=== PATIENT | female | born 1965 | race Caucasian/White ===

== ENCOUNTER 2017-02-02 11:45 | Emergency (ER) | payer OTHER, BC ==
[2017-02-02 11:50] VITALS: BP 118/66
--- NOTE | 2017-02-02 12:21 | EDM.PDOC ---
ED HPI GENERAL MEDICAL PROBLEM - General Chief Complaint: Lower Extremity Injury/Pain Stated Complaint: LT FOOT PAIN Time Seen by Provider: 02/02/17 12:00 Source of Information: Reports: Patient History Limitations: Reports: No Limitations - History of Present Illness INITIAL COMMENTS - FREE TEXT/NARRATIVE: Pt was at the [employer] alley with students when one of them dropped a 12# bowling ball on her left great toe. She has noted discoloration to the toe nail and distal end of the toe is tender to palpation and any movement. She does state that it feels numb at the end. Onset: Today Location: Reports: Other (right great toe.) Quality: Reports: Throbbing Left 1-Hallux Pain Score (Numeric/FACES): 5 - Related Data Allergies Allergy/AdvReac Type Severity Reaction Status Date / Time No Known Allergies Allergy Verified 02/02/17 11:50 Home Meds: Home Meds . [No Known Home Meds] 04/16/16 [History] Past Medical History - Past Surgical History Musculoskeletal Surgical History: Reports: Other (See Below) Other Musculoskeletal Surgeries/Procedures:: LEFT FOOT BUNION SURGERY Social & Family History - Tobacco Use Smoking Status *Q: Never Smoker - Caffeine Use Caffeine Use: Reports: Coffee - Recreational Drug Use Recreational Drug Use: No Review of Systems - Review of Systems Review Of Systems: See Below Musculoskeletal: Reports: Foot Pain ED EXAM, GENERAL - Physical Exam Exam: See Below Exam Limited By: No Limitations General Appearance: Alert, WD/WN, Mild Distress Extremities: Other (left great toe is swollen and bruised. Blood noted under the toenail. Toenail is intact. No open skin or bleeding noted at this time. Does state there is a decrease in sensation when touching but has pain with any movement.) Neurological: Alert, Oriented Skin Exam: Warm, Dry Course - Vital Signs Last Recorded V/S: Last Vital Signs Temp 97.5 F 02/02/17 11:48 Pulse 70 02/02/17 11:48 Resp 16 02/02/17 11:48 BP 118/66 02/02/17 11:48 Pulse Ox 97 02/02/17 11:48 - Orders/Labs/Meds Orders: Active Orders 24 hr Category Date Time Status Toes Great Toe Lt TA [CR] Stat Exams 02/02/17 11:55 Taken Departure - Departure Time of Disposition: 12:18 Disposition: Home, Self-Care 01 Condition: Good Clinical Impression: Fracture of toe of left foot Qualifiers: Encounter type: initial encounter Toe: great toe Fracture type: closed Phalanx : distal Fracture alignment: nondisplaced Qualified Code(s): S92.425A - Nondisplaced fracture of distal phalanx of left great toe, initial encounter for closed fracture - Discharge Information Forms: ED Department Discharge Additional Instructions: elevate for swelling ice to toe for swelling Tylenol or advil for pain and swelling Recheck if any new concerns - Problem List & Annotations (1) Fracture of toe of left foot SNOMED Code(s): 75903361 Code(s): S92.912A - UNSP FRACTURE OF LEFT TOE(S), INIT FOR CLOS FX Status: Acute Qualifiers: Encounter type: initial encounter Toe: great toe Fracture type: closed Phalanx: distal Fracture alignment: nondisplaced Qualified Code(s): S92.425A - Nondisplaced fracture of distal phalanx of left great toe, initial encounter for closed fracture - Problem List Review Problem List Initiated/Reviewed/Updated: Yes - My Orders Last 24 Hours: My Active Orders 02/02/17 11:55 Toes Great Toe Lt TA [CR] Stat - Assessment/Plan Last 24 Hours: My Active Orders 02/02/17 11:55 Toes Great Toe Lt TA [CR] Stat
== END 2017-02-02 12:23 | disposition home or self-care (01) ==
LOC: CC.ED 11:45
DX: S92.425A Nondisplaced fracture of distal phalanx of left great toe, initial encounter for closed fracture (principal); S92.422A Displaced fracture of distal phalanx of left great toe, initial encounter for closed fracture; W21.09XA Struck by other hit or thrown ball, initial encounter; Y92.39 Other specified sports and athletic area as the place of occurrence of the external cause
CPT/HCPCS: 73660-TA; 99283

== ENCOUNTER 2019-11-20 06:10 | Observation (INO) | payer BC, OTHER ==
[2019-11-20] MEDS ORDERED: Ondansetron 4 MG/2 ML SDV ONE (06:25)
[2019-11-20] MEDS ORDERED: Ondansetron 4 MG/2 ML SDV IVPUSH STA (06:44)
[2019-11-20 06:45] LABS: CHLORIDE,CL 100 mEq/L (98-106); SODIUM,NA 135 mEq/L (136-145)
[2019-11-20] MEDS ORDERED: Sodium Chloride 0.9% 1,000 ML IV SCH (06:45)
[2019-11-20] MEDS ORDERED: Iopamidol 755 Mg/ML 100 ML Bottle IVPUSH ONE (07:24)
[2019-11-20] MEDS ORDERED: Ondansetron 4 MG/2 ML SDV IV PRN (09:48)
[2019-11-20] MEDS ORDERED: Enoxaparin 40 MG/0.4 ML Syringe SUBCUT SCH (09:48)
[2019-11-20] MEDS ORDERED: Ibuprofen 200 MG Tab PO PRN (09:48)
[2019-11-20] MEDS ORDERED: Ondansetron 4 MG Tab.DIS PO PRN (10:00)
[2019-11-20] MEDS: Acetaminophen 325 MG Tab PO PRN ×2 (11:13→20:23)
[2019-11-20] MEDS: Dexamethasone 4 MG Tab PO SCH (11:15)
[2019-11-20] MEDS: Sodium Chloride 0.9% 1,000 ML IV SCH ×2 (11:15→20:24)
--- NOTE | 2019-11-20 13:08 | EDM.PDOC ---
ED HPI GENERAL MEDICAL PROBLEM - General Chief Complaint: General Stated Complaint: COVID + symptoms getting worse Time Seen by Provider: 11/20/19 06:35 Source of Information: Reports: Patient, EMS History Limitations: Reports: No Limitations - History of Present Illness INITIAL COMMENTS - FREE TEXT/NARRATIVE: Patient presents to ER with complaints of body aches, chest discomfort and shortness of breath. She has started running fevers over the last 2 days. Admits nausea and vomiting. Hard to "keep anything down". Feels is getting much worse in regards to her covid symptoms. Patient has been symptomatic for 8 days now, had COVID testing on Monday and was positive. Has been trying to rest but symptoms are worsening. States chest/ribs "hurt so much". She denies any abdominal pain. Is getting weaker. Has been diaphoretic with chills. Has been in quarantine at home since last week. Has been taking tylenol and ibuprofen but has not felt any better with that. Onset: Gradual Duration: Day(s):, Getting Worse Location: Reports: Head, Chest, Generalized Quality: Reports: Ache, Throbbing Severity: Moderate Improves with: Reports: None Associated Symptoms: Reports: Chest Pain, Cough, Diaphoresis, Fever/Chills, Headaches, Loss of Appetite, Malaise, Nausea/Vomiting, Shortness of Breath, Weakness. Denies: Confusion, cough w sputum Treatments [employer]: Reports: Acetaminophen, NSAIDS Bilateral Middle Anterior Chest Pain Score (Numeric/FACES): 6 - Related Data Allergies Allergy/AdvReac Type Severity Reaction Status Date / Time No Known Allergies Allergy Verified 11/20/19 06:11 Home Meds: Home Meds . [No Known Home Meds] 04/16/16 [History] Past Medical History - Past Health History Medical/Surgical History: Denies Medical/Surgical History - Past Surgical History Musculoskeletal Surgical History: Reports: Other (See Below) Other Musculoskeletal Surgeries/Procedures:: LEFT FOOT BUNION SURGERY Social & Family History - Family History Family Medical History: Noncontributory - Tobacco Use Smoking Status *Q: Never Smoker - Caffeine Use Caffeine Use: Reports: Coffee - Recreational Drug Use Recreational Drug Use: No ED ROS GENERAL - Review of Systems Review Of Systems: See Below Constitutional: Reports: Fever, Chills, Malaise, Weakness, Fatigue, Diaphoresis, Decreased Appetite HEENT: Reports: Rhinitis. Denies: Ear Pain, Throat Pain, Vertigo, Vision Change Respiratory: Reports: Shortness of Breath, Pleuritic Chest Pain, Cough Cardiovascular: Denies: Chest Pain, Edema, Lightheadedness Endocrine: Reports: Fatigue GI/Abdominal: Reports: Nausea, Vomiting. Denies: Abdominal Pain, Constipation, Diarrhea : Reports: No Symptoms Musculoskeletal: Reports: No Symptoms Skin: Reports: No Symptoms Neurological: Reports: Headache, Weakness Psychiatric: Reports: No Symptoms ED EXAM, GENERAL - Physical Exam Exam: See Below Exam Limited By: No Limitations General Appearance: Alert, WD/WN, Mild Distress Ears: Normal External Exam, Normal TMs Nose: Normal Inspection, Normal Mucosa, No Blood Throat/Mouth: Normal Inspection, Normal Oropharynx Head: Normocephalic Neck: Normal Inspection, Supple, Non-Tender Respiratory/Chest: No Respiratory Distress, Rales (bilateral lower lobes) Cardiovascular: Regular Rate, Rhythm GI/Abdominal: Normal Bowel Sounds, Soft, Non-Tender Extremities: Normal Inspection, No Pedal Edema Neurological: Alert, Oriented Skin Exam: Warm, Dry Course - Vital Signs Last Recorded V/S: Last Vital Signs Temp 99.0 F 11/20/19 11:19 Pulse 71 11/20/19 11:19 Resp 16 11/20/19 11:19 BP 125/59 L 11/20/19 11:19 Pulse Ox 95 11/20/19 11:19 - Orders/Labs/Meds Orders: Active Orders 24 hr Category Date Time Status Ang Chest [CT] Stat Exams 11/20/19 07:07 Taken Chest 1V Frontal [CR] Stat Exams 11/20/19 06:20 Taken Isolation [COMM] Routine Oth 11/20/19 06:10 Active Medication Orders Acetaminophen (Tylenol) 650 mg PO Q4H PRN PRN Reason: Pain (Mild 1-3)/fever Last Admin: 11/20/19 11:13 Dose: 650 mg Documented by: DMITRIY Dexamethasone (Dexamethasone) 6 mg PO DAILY [facility] Last Admin: 11/20/19 11:15 Dose: 6 mg Documented by: DMITRIY Enoxaparin Sodium (Lovenox) 40 mg SUBCUT Q24H [facility] [place] Last Admin: 11/20/19 11:16 Dose: 40 mg Documented by: DMITRIY Sodium Chloride (Normal Saline) 1,000 mls @ 100 mls/hr IV ASDIRECTED [facility] [place] Last Admin: 11/20/19 11:15 Dose: 100 mls/hr Documented by: DMITRIY Ibuprofen (Motrin) 400 mg PO Q6H PRN PRN Reason: Pain (mild 1-3) Ondansetron HCl (Zofran Odt) 4 mg PO Q4H PRN PRN Reason: nausea, able to take PO Ondansetron HCl (Zofran) 4 mg IV Q6H PRN PRN Reason: Nausea/Vomiting Labs: Laboratory Tests 11/20/19 11/20/19 11/20/19 Range/Units 06:30 06:30 06:30 WBC 3.2 L (5.0-10.0) 10^3/uL RBC 4.28 (4.00-5.50) 10^6/uL Hgb 12.5 (12.0-16.0) g/dL Hct 37.9 (37.0-47.0) % MCV 88.6 (82.0-94.0) fL MCH 29.2 (27.0-32.0) pg MCHC 33.0 (33.0-38.0) g/dL RDW Coeff of Claudy 13.8 (11.0-15.0) % Plt Count 162 (150-400) 10^3/uL Neut % (Auto) 63.5 (35-85) % Lymph % (Auto) 28.3 (10-55) % [place] % (Auto) 7.9 (0-16) % Eos % (Auto) 0.3 (0-5) % Baso % (Auto) 0 (0-3) % Neut # (Auto) 2.02 (1.80-7.00) 10^3/uL Lymph # (Auto) 0.90 L (1.00-4.80) 10^3/uL [place] # (Auto) 0.25 (0.00-0.80) 10^3/uL Eos # (Auto) 0.01 (0.00-0.45) 10^3/uL Baso # (Auto) 0.00 10^3/uL D-Dimer, Quantitative 0.69 H (0.00-0.50) Sodium 135 L (136-145) mEq/L Potassium 3.8 (3.5-5.0) mEq/L Chloride 100 (98-106) mEq/L Carbon Dioxide 26 (21-32) mmol/L BUN 9 (7-18) mg/dL Creatinine 0.7 (0.6-1.0) mg/dL Est Cr Clr Drug Dosing 98.20 mL/min Estimated GFR (MDRD) > 60 (>=60) mL/min Glucose 124 H (75-99) mg/dL Calcium 8.5 (8.4-10.1) mg/dL Total Bilirubin 0.4 (0.0-1.0) mg/dL AST 25 (15-37) U/L ALT 25 (12-78) U/L Alkaline Phosphatase 77 (46-116) U/L C-Reactive Protein 4.3 H (0.2-0.8) mg/dL Total Protein 7.8 (6.4-8.2) g/dL Albumin 3.4 (3.4-5.0) g/dL Meds: Medications Generic Name Dose Route Start Last Admin Trade Name Freq PRN Reason Stop Dose Admin Acetaminophen 650 mg 11/20/19 09:48 11/20/19 11:13 Tylenol PO 650 mg Q4H PRN Administration Pain (Mild 1-3)/fever Dexamethasone 6 mg 11/20/19 09:48 11/20/19 11:15 Dexamethasone PO 6 mg DAILY JORGE L Administration Enoxaparin Sodium 40 mg 11/20/19 09:48 11/20/19 11:16 Lovenox SUBCUT 40 mg Q24H JORGE L Administration Sodium Chloride 1,000 mls @ 100 mls/hr 11/20/19 09:48 11/20/19 11:15 Normal Saline IV 100 mls/hr ASDIRECTED JORGE L Administration Ibuprofen 400 mg 11/20/19 09:48 Motrin PO Q6H PRN Pain (mild 1-3) Ondansetron HCl 4 mg 11/20/19 10:00 Zofran Odt PO Q4H PRN nausea, able to take PO Ondansetron HCl 4 mg 11/20/19 09:48 Zofran IV Q6H PRN Nausea/Vomiting Discontinued Medications Generic Name Dose Route Start Last Admin Trade Name Freq PRN Reason Stop Dose Admin Sodium Chloride 1,000 mls @ 500 mls/hr 11/20/19 06:45 11/20/19 06:50 Normal Saline IV 500 mls/hr ASDIRECTED JORGE L Administration Iopamidol 100 ml 11/20/19 07:24 11/20/19 08:02 Isovue-370 (76%) IVPUSH 11/20/19 07:25 100 ml ONETIME ONE Administration Ondansetron HCl 4 mg 11/20/19 06:44 11/20/19 06:50 Zofran IVPUSH 11/20/19 06:45 4 mg NOW STA Administration Ondansetron HCl Confirm 11/20/19 06:25 11/20/19 06:50 Zofran Administered 11/20/19 06:26 Not Given Dose 4 mg .ROUTE .[facility] - Re-Assessments/Exams Free Text/Narrative Re-Assessment/Exam: 11/20/19 Labs noted, does have mildly elevated d-dimer and CRP. Chest xray shows bilateral infiltrates. Will proceed with CTA. IV normal saline initiated. Zofran IV given without much relief of symptoms. 929- CTA is negative for PE. Does have infiltrates associated with COVID. discussed antiviral treatment and plasma with the patient. She is "not interested in that". Will admit here. Oxygen, IV fluids and start dexamethasone. Dr. smith aware and agrees with admission. Departure - Departure Time of Disposition: 09:35 Disposition: Admitted As Inpatient 65 Condition: Fair Clinical Impression: Pneumonitis, COVID-19 - Discharge Information *PRESCRIPTION DRUG MONITORING PROGRAM REVIEWED*: No *COPY OF PRESCRIPTION DRUG MONITORING REPORT IN PATIENT SAMANTHA: No Sepsis Event Note (ED) - Evaluation Sepsis Screening Result: No Definite Risk - Focused Exam Vital Signs: Vital Signs Temp Pulse Resp BP BP Pulse Ox 11/20/19 09:35 99.2 F 69 16 103/79 98 11/20/19 08:00 71 16 105/50 L 95 11/20/19 07:30 99.6 F 77 16 128/79 95 11/20/19 06:59 79 16 123/65 95 11/20/19 06:36 99.6 F 76 16 122/63 96 11/20/19 06:12 99.3 F 80 16 136/70 93 L - Problem List & Annotations (1) COVID-19 SNOMED Code(s): 763531656 Code(s): U07.1 - COVID-19 Status: Acute Priority: High Current Visit: Yes (2) Pneumonitis SNOMED Code(s): 509460714 Code(s): J18.9 - PNEUMONIA, UNSPECIFIED ORGANISM Status: Acute Priority: High Current Visit: Yes - Problem List Review Problem List Initiated/Reviewed/Updated: Yes - My Orders Last 24 Hours: My Active Orders 11/20/19 06:10 Isolation [COMM] Routine 11/20/19 06:20 Chest 1V Frontal [CR] Stat 11/20/19 07:07 Ang Chest [CT] Stat - Assessment/Plan Admission H&P: Please use this note as an admission H&P Last 24 Hours: My Active Orders 11/20/19 06:10 Isolation [COMM] Routine 11/20/19 06:20 Chest 1V Frontal [CR] Stat 11/20/19 07:07 Ang Chest [CT] Stat Assessment:: bilateral viral pneumonitis COVID 19 Plan: Admit to inpatient. IV fluids, dexamethasone, Lovenox and oxygen as needed.
[2019-11-21] MEDS: Sodium Chloride 0.9% 1,000 ML IV SCH (06:13)
[2019-11-21] MEDS: Dexamethasone 4 MG Tab PO SCH (07:34)
[2019-11-21 07:37] VITALS: BP 127/66; PULSE 64
[2019-11-21 07:49] LABS: CHLORIDE,CL 111 mEq/L (98-106); SODIUM,NA 142 mEq/L (136-145)
[2019-11-21] MEDS ORDERED: Enoxaparin 40 MG/0.4 ML Syringe SUBCUT SCH (08:00)
--- NOTE | 2019-11-21 09:12 | PCM.DCSUM1 ---
Discharge Summary - Hospital Course Free Text/Narrative:: Patient presented to ER yesterday with complaints of weakness, chest discomfort and dehydration. COVID 19+. Has been in quarantine at home but her symptoms were progressing and she was feeling much worse. Oxygen sat was 91-93% on room air but patient admitted felt better while using. She had not been able to eat or drink much over the 48 hours prior. Had a severe headache. Started running a fever for 48 hours. Labs were essentially stable, CRP mildly elevated. D- dimer elevated. Chest xray shows bilateral infiltrate. CTA done, no PE, did show bilateral ground glass infiltrates. Admitted and started on IV fluids. Dexamethasone. Oxygen as needed. Diagnosis: Stroke: No Modified Kelly Scale: No Symptoms at All Modified [place] Scale Score: 0 - Discharge Data Discharge Date: 11/21/19 Discharge Disposition: Home, Self-Care 01 Condition: Fair - Referral to Home Health Primary Care Physician: PCP None - Discharge Diagnosis/Problem(s) (1) COVID-19 SNOMED Code(s): 968591885 ICD Code: U07.1 - COVID-19 Status: Acute Priority: High (2) Pneumonitis SNOMED Code(s): 876107849 ICD Code: J18.9 - PNEUMONIA, UNSPECIFIED ORGANISM Status: Acute Priority: High - Patient Summary/Data Complications: none Hospital Course: Patient admits to feeling much better this am. She has not used any oxygen since yesterday afternoon. Last low grade temp was yesterday around noon. She feels less pressure in her chest. Headache is gone. Able to eat supper last night. No nausea this am. Labs are all stable this am. - Patient Instructions Diet: Usual Diet as Tolerated Activity: As Tolerated - Discharge Plan *PRESCRIPTION DRUG MONITORING PROGRAM REVIEWED*: No *COPY OF PRESCRIPTION DRUG MONITORING REPORT IN PATIENT SAMANTHA: No Prescriptions/Med Rec: dexAMETHasone [Dexamethasone] 6 mg PO DAILY #5 tablet Ondansetron [Zofran ODT] 4 mg PO Q4H PRN #30 tab.dis PRN Reason: nausea, able to take PO Home Medications: Home Meds Ondansetron [Zofran ODT] 4 mg PO Q4H PRN #30 tab.dis 11/21/19 [Rx] dexAMETHasone [Dexamethasone] 6 mg PO DAILY #5 tablet 10/01/20 [Rx] Patient Handouts: COVID-19 Frequently Asked Questions, COVID-19 Forms: ED Department Discharge Referrals: PCP,None [Primary Care Provider] - - Discharge Summary/Plan Comment DC Time >30 min.: No - General Info Date of Service: 11/21/19 Admission Dx/Problem (Free Text: Pneumonitis Functional Status: Reports: Pain Controlled, Tolerating Diet, Ambulating - Review of Systems General: Reports: Weakness, Fatigue, Malaise. Denies: Fever HEENT: Reports: Sinus Congestion, Rhinitis Pulmonary: Reports: Shortness of Breath, Pleuritic Chest Pain, Cough Cardiovascular: Denies: Chest Pain, Edema, Lightheadedness Gastrointestinal: Denies: Abdominal Pain, Nausea, Vomiting Genitourinary: Reports: No Symptoms Musculoskeletal: Reports: No Symptoms Skin: Reports: No Symptoms Neurological: Reports: Weakness - Patient Data Vitals - Most Recent: Last Vital Signs Temp 98.5 F 11/21/19 07:36 Pulse 64 11/21/19 07:36 Resp 16 11/21/19 07:36 BP 127/66 11/21/19 07:36 Pulse Ox 96 11/21/19 07:36 Weight - Most Recent: 200 lb I&O - Last 24 hours: Intake & Output 11/20/19 11/21/19 11/21/19 22:59 06:59 14:59 Intake Total 2855 1582 Output Total 1800 400 Balance 1055 1182 Lab Results - Last 24 hrs: Laboratory Results - last 24 hr 11/21/19 11/21/19 Range/Units 05:11 05:11 WBC 4.7 L (5.0-10.0) 10^3/uL RBC 3.72 L (4.00-5.50) 10^6/uL Hgb 10.9 L (12.0-16.0) g/dL Hct 33.9 L (37.0-47.0) % MCV 91.1 (82.0-94.0) fL MCH 29.3 (27.0-32.0) pg MCHC 32.2 L (33.0-38.0) g/dL RDW Coeff of Claudy 13.6 (11.0-15.0) % Plt Count 148 L (150-400) 10^3/uL Neut % (Auto) 73.2 (35-85) % Lymph % (Auto) 19.3 (10-55) % [place] % (Auto) 7.5 (0-16) % Eos % (Auto) 0 (0-5) % Baso % (Auto) 0 (0-3) % Neut # (Auto) 3.41 (1.80-7.00) 10^3/uL Lymph # (Auto) 0.90 L (1.00-4.80) 10^3/uL [place] # (Auto) 0.35 (0.00-0.80) 10^3/uL Eos # (Auto) 0.00 (0.00-0.45) 10^3/uL Baso # (Auto) 0.00 10^3/uL Sodium 142 (136-145) mEq/L Potassium 3.5 (3.5-5.0) mEq/L Chloride 111 H (98-106) mEq/L Carbon Dioxide 24 (21-32) mmol/L BUN 7 (7-18) mg/dL Creatinine 0.5 L (0.6-1.0) mg/dL Est Cr Clr Drug Dosing 137.48 mL/min Estimated GFR (MDRD) > 60 (>=60) mL/min Glucose 104 H (75-99) mg/dL Calcium 7.4 L (8.4-10.1) mg/dL Total Bilirubin 0.3 (0.0-1.0) mg/dL AST 20 (15-37) U/L ALT 23 (12-78) U/L Alkaline Phosphatase 62 (46-116) U/L C-Reactive Protein 3.1 H (0.2-0.8) mg/dL Total Protein 6.6 (6.4-8.2) g/dL Albumin 2.8 L (3.4-5.0) g/dL Med Orders - Current: Current Medications Acetaminophen (Tylenol) 650 mg PO Q4H PRN PRN Reason: Pain (Mild 1-3)/fever Last Admin: 11/20/19 20:23 Dose: 650 mg Documented by: Dexamethasone (Dexamethasone) 6 mg PO DAILY [facility] Last Admin: 11/21/19 07:34 Dose: 6 mg Documented by: Enoxaparin Sodium (Lovenox) 40 mg SUBCUT Q24H [facility] Last Admin: 11/21/19 07:34 Dose: 40 mg Documented by: Sodium Chloride (Normal Saline) 1,000 mls @ 100 mls/hr IV ASDIRECTED [facility] Last Admin: 11/21/19 06:13 Dose: 100 mls/hr Documented by: Ibuprofen (Motrin) 400 mg PO Q6H PRN PRN Reason: Pain (mild 1-3) Ondansetron HCl (Zofran Odt) 4 mg PO Q4H PRN PRN Reason: nausea, able to take PO Ondansetron HCl (Zofran) 4 mg IV Q6H PRN PRN Reason: Nausea/Vomiting Discontinued Medications Enoxaparin Sodium (Lovenox) 40 mg SUBCUT Q24H [facility] Last Admin: 11/20/19 11:16 Dose: 40 mg Documented by: Sodium Chloride (Normal Saline) 1,000 mls @ 500 [facility] Last Admin: 11/20/19 06:50 Dose: 500 mls/hr Documented by: Iopamidol (Isovue-370 (76%)) 100 ml IVPUSH ONETIME ONE Stop: 11/20/19 07:25 Last Admin: 11/20/19 08:02 Dose: 100 ml Documented by: Ondansetron HCl (Zofran) 4 mg IVPUSH NOW STA Stop: 11/20/19 06:45 Last Admin: 11/20/19 06:50 Dose: 4 mg Documented by: Ondansetron HCl (Zofran) Confirm Administered Dose 4 mg .ROUTE .[facility] Stop: 11/20/19 06:26 Last Admin: 11/20/19 06:50 Dose: Not Given Documented by: - Exam General: Reports: Alert, Oriented HEENT: Reports: Mucous Membr. Moist/[place] Neck: Reports: Supple Lungs: Reports: Decreased Breath Sounds, Rales Cardiovascular: Reports: Regular Rate, Regular Rhythm GI/Abdominal Exam: Normal Bowel Sounds, Soft, Non-Tender Extremities: Normal Inspection, No Pedal Edema Skin: Reports: Warm, Dry Neurological: Reports: No New Focal Deficit
== END 2019-11-21 11:00 | disposition home or self-care (01) ==
LOC: CC.ED 06:10 → CC.MS 09:28 → UNDOADMIN 09:28 → INTOOBSV 09:37 → CC.MS 09:37
PROVIDERS: ADMIT Physician Assistant Medical; ATTEND Family Medicine
DX: U07.1 COVID-19 (principal); J12.89 Other viral pneumonia
CPT/HCPCS: 36415; 71045; 71275; 80053; 85025; 85379; 86140; 96361; 96374; 99285-25; A9270-GY; G0378; J1650; J2405; J7030; J8540; Q9967